=== PATIENT | female | born 1950 | race Caucasian/White ===

== ENCOUNTER → 2019-03-01 | Outpatient (CLI) | payer OTHER ==
--- NOTE | 2019-03-02 14:11 | SLEEP ---
DATE OF STUDY: 03/01/2019 POLYSOMNOGRAM REPORT OBJECTIVE: The patient is a 69-year-old female with excessive somnolence and snoring, rule out sleep apnea. Height 62 inches, weight 175 pounds and BMI 32.0. [place] sleep score 5. The apnea-hypopnea index is 7.4 events per hour of sleep. The minimum oxygen saturation is 83%. Snoring occurs 16.4% of the time. No significant cardiac arrhythmias are observed. IMPRESSION: Abnormal home polysomnogram showing obstructive sleep apnea and hypopnea. RECOMMENDATIONS: I will discuss with the patient starting on auto-titrating CPAP machine. Thank you for letting us help with the patient's care. CRISTOFER LOVE MD DR: ED/alex JOB#: [id number] / [id number]
== END | disposition home or self-care (01) ==
LOC: RT 11:06
PROVIDERS: ATTEND Psychiatry & Neurology Neurology with Special Qualifications in Child Neurology
DX: G47.33 Obstructive sleep apnea (adult) (pediatric) (principal)
CPT/HCPCS: G0399